=== PATIENT | male | born 1975 | race Two or more races ===

== ENCOUNTER 2021-07-03 18:23 | Inpatient (IN) | payer OTHER ==
[~2021-07-03] VITALS: Ht 170.2 cm; Wt 64.0 kg
--- NOTE | 2021-07-03 18:52 | NUR ---
warp dyeing tender: pt to RAD then to room 21
[2021-07-03] MEDS ORDERED: PLEASE ENTER HEIGHT AND WEIGHT MC SCH (19:00)
[2021-07-03] MEDS ORDERED: SODIUM CHLORIDE FLUSH 10ML SYR IVF ONE (19:00)
[2021-07-03] MEDS ORDERED: PLEASE ENTER ALLERGIES MC SCH (19:00)
[2021-07-03 19:05] LABS: ALANINE AMINOTRANSFERASE 439 U/L (12-78); ALBUMIN 3.2 g/dL (3.4-5.0); ANION GAP 5 mmol/L (5-15); CALCIUM 9.1 mg/dL (8.5-10.1); CHLORIDE 103 mmol/L (98-107); CREATININE 0.45 mg/dL (0.7-1.3)
[2021-07-03 19:06] LABS: BASOPHILS % (AUTO) 0 % (0-1); EOSINOPHILS % (AUTO) 1 % (1-7); LYMPHOCYTES % (AUTO) 10 % (22-44); MEAN CORPUSCULAR HEMOGLOBIN 30.3 pg (27.5-34.5); MEAN CORPUSCULAR HGB CONC 34.4 g/dL (33.2-36.2); MEAN PLATELET VOLUME 9.3 fL (7.4-10.4); MONOCYTES % (AUTO) 9 % (2-9); NEUTROPHILS % (AUTO) 80 % (42-75); PLATELET COUNT 199 x10^3/uL (130-400); RED BLOOD COUNT 4.62 x10^6/uL (4.38-5.82); RED CELL DISTRIBUTION WIDTH 13.5 % (9.4-14.8)
[2021-07-03 19:08] LABS: ALKALINE PHOSPHATASE 563 U/L (45-117); BILIRUBIN,TOTAL 6.8 mg/dL (0.2-1.0); TOTAL PROTEIN 7.6 g/dL (6.4-8.2)
--- NOTE | 2021-07-03 19:52 | NUR ---
PT CAME IN FOR DIARHHEA AND ABD PAIN, PT IS JAUNDICED. DENIES EXCESSIVE ETOH CONSUMPTION. ACCOMPANIED BY WHO TRANSLATES FOR [place] SPEAKING PT. LABS DRAWN, U/S COMPLETE, PT TAKEN TO CT. PT CONNECTED TO MONITORS
[2021-07-03 20:03] LABS: MICROSCOPIC INDICATED
[2021-07-03] MEDS ORDERED: LACTATED RINGERS 1,000 ML IVBOLUS ONE (20:30)
[2021-07-03] MEDS ORDERED: OMNIPAQUE 350 MG/ML, 100ML BOTTLE ONE (20:46)
--- NOTE | 2021-07-03 21:14 | NUR ---
provided pt with blanket, pt napping. vss
[2021-07-03] MEDS ORDERED: ONDANSETRON 2MG/ML, 2ML IVPush PRN (22:30)
[2021-07-03] MEDS ORDERED: BISACODYL 10 MG SUPP PR PRN (22:30)
[2021-07-03 22:36] VITALS: BP 149/83
[2021-07-03] MEDS ORDERED: METF500T17 PO (22:56)
[2021-07-03] MEDS: SODIUM CHLORIDE 0.9% 1,000 ML IV SCH (23:34)
[2021-07-04] MEDS: INSULIN LISPRO 100 UNITS/ML, PEN SQ-INSULIN SCH ×5 (00:07→20:45)
[2021-07-04 02:00] VITALS: BP 128/81
[2021-07-04 06:03] LABS: BASOPHILS % (AUTO) 1 % (0-1); EOSINOPHILS % (AUTO) 1 % (1-7); LYMPHOCYTES % (AUTO) 11 % (22-44); MEAN CORPUSCULAR HEMOGLOBIN 30.2 pg (27.5-34.5); MEAN CORPUSCULAR HGB CONC 33.8 g/dL (33.2-36.2); MEAN PLATELET VOLUME 9.3 fL (7.4-10.4); MONOCYTES % (AUTO) 9 % (2-9); NEUTROPHILS % (AUTO) 79 % (42-75); PLATELET COUNT 174 x10^3/uL (130-400); RED BLOOD COUNT 4.38 x10^6/uL (4.38-5.82); RED CELL DISTRIBUTION WIDTH 13.8 % (9.4-14.8)
[2021-07-04 06:17] LABS: ALBUMIN 2.9 g/dL (3.4-5.0); ANION GAP 6 mmol/L (5-15); CALCIUM 8.4 mg/dL (8.5-10.1); CHLORIDE 105 mmol/L (98-107)
[2021-07-04 06:21] LABS: ALANINE AMINOTRANSFERASE 391 U/L (12-78); ALKALINE PHOSPHATASE 524 U/L (45-117); BILIRUBIN,TOTAL 6.3 mg/dL (0.2-1.0); CREATININE 0.44 mg/dL (0.7-1.3)
[2021-07-04] MEDS ORDERED: POTASSIUM CHLORIDE 20 MEQ TAB.ER.PRT PO ONE (07:00)
[2021-07-04 07:25] VITALS: BP 103/62
[2021-07-04] MEDS: SODIUM CHLORIDE 0.9% 1,000 ML IV SCH (12:20)
[2021-07-04 14:03] VITALS: BP 115/72
[2021-07-04 19:13] VITALS: BP 107/66
[2021-07-05 00:26] VITALS: BP 125/79
[2021-07-05] MEDS: SODIUM CHLORIDE 0.9% 1,000 ML IV SCH ×2 (04:00→11:52)
[2021-07-05 06:09] LABS: ALANINE AMINOTRANSFERASE 361 U/L (12-78); ALBUMIN 2.9 g/dL (3.4-5.0); ANION GAP 6 mmol/L (5-15); CALCIUM 8.6 mg/dL (8.5-10.1); CHLORIDE 106 mmol/L (98-107)
[2021-07-05 06:11] LABS: ALKALINE PHOSPHATASE 542 U/L (45-117); INTERNATIONAL NORMALIZED RATIO 1.11 (0.93-1.1); PROTHROMBIN TIME 11.8 Seconds (9.6-11.5)
[2021-07-05] MEDS: PANCRELIPASE 24,000 CAPSULE.DR PO SCH ×3 (06:41→16:14)
[2021-07-05] MEDS: INSULIN LISPRO 100 UNITS/ML, PEN SQ-INSULIN SCH ×4 (06:41→19:56)
[2021-07-05 07:13] VITALS: BP 128/77
[2021-07-05] MEDS ORDERED: OMNIPAQUE 350 MG/ML, 50 ML BOTTLE ONE (07:19)
[2021-07-05] MEDS ORDERED: FENTANYL PF 100 MCG/2ML ONE (07:29)
[2021-07-05] MEDS ORDERED: hydrALAzine 20 MG/ML, 1ML IV PRN (07:30)
[2021-07-05] MEDS ORDERED: MEPERIDINE/PF 25MG/0.5ML IVPush PRN (07:30)
[2021-07-05] MEDS ORDERED: FENTANYL PF 100 MCG/2ML IV PRN (07:30)
[2021-07-05] MEDS ORDERED: DIPHENHYDRAMINE 50 MG/ML, 1ML IVPush PRN (07:30)
[2021-07-05] MEDS ORDERED: PROMETHAZINE 25 MG/ML, 1ML IVPush PRN (07:30)
[2021-07-05] MEDS ORDERED: HALOPERIDOL 5 MG/ML IV PRN (07:30)
[2021-07-05] MEDS ORDERED: LABETALOL 5MG/ML, 20ML IV PRN (07:30)
[2021-07-05] MEDS ORDERED: CHLORHEXIDINE 15 ML UDC ONE (07:46)
[2021-07-05] MEDS ORDERED: CHLORHEXIDINE 15 ML UDC PO ONE (08:00)
[2021-07-05] MEDS ORDERED: PROPOFOL 10 MG/ML, 20ML ONE (08:17)
[2021-07-05] MEDS ORDERED: ROCURONIUM 10MG/ML,5ML ONE (08:17)
[2021-07-05] MEDS ORDERED: NEOSTIGMINE 1 MG/ML, 10ML ONE (08:17)
[2021-07-05] MEDS ORDERED: GLYCOPYRROLATE 0.2MG/1ML, 5ML ONE (08:17)
[2021-07-05] MEDS ORDERED: ONDANSETRON 2MG/ML, 2ML ONE (08:17)
[2021-07-05] MEDS ORDERED: CEFAZOLIN 1,000 MG ONE (08:17)
[2021-07-05] MEDS ORDERED: SUCCINYLCHOLINE 20 MG/ML, 10ML ONE (08:17)
[2021-07-05 10:00] VITALS: BP 150/77
[2021-07-05] MEDS: morphine SULFATE 10 MG/ML, 1ML IVPush PRN ×4 (10:23→19:49)
[2021-07-05 12:55] VITALS: BP 134/79
[2021-07-05 19:00] VITALS: BP 147/82
[2021-07-06 00:49] VITALS: BP 138/72
[2021-07-06] MEDS: SODIUM CHLORIDE 0.9% 1,000 ML IV SCH ×2 (00:52→14:47)
[2021-07-06 07:10] VITALS: BP 125/79
[2021-07-06] MEDS: PANCRELIPASE 24,000 CAPSULE.DR PO SCH ×3 (07:34→16:09)
[2021-07-06] MEDS: INSULIN LISPRO 100 UNITS/ML, PEN SQ-INSULIN SCH ×4 (07:34→21:53)
[2021-07-06] MEDS: PANTOPRAZOLE 40 MG IV IVPush SCH ×2 (10:06→21:37)
[2021-07-06 10:40] LABS: BASOPHILS % (AUTO) 0 % (0-1); EOSINOPHILS % (AUTO) 0 % (1-7); LYMPHOCYTES % (AUTO) 9 % (22-44); MEAN CORPUSCULAR HEMOGLOBIN 30.3 pg (27.5-34.5); MEAN PLATELET VOLUME 9.4 fL (7.4-10.4); MONOCYTES % (AUTO) 7 % (2-9); NEUTROPHILS % (AUTO) 83 % (42-75); PLATELET COUNT 177 x10^3/uL (130-400); RED BLOOD COUNT 4.39 x10^6/uL (4.38-5.82); RED CELL DISTRIBUTION WIDTH 13.9 % (9.4-14.8)
[2021-07-06 10:48] LABS: ANION GAP 7 mmol/L (5-15); CALCIUM 8.7 mg/dL (8.5-10.1); CHLORIDE 101 mmol/L (98-107)
[2021-07-06 10:51] LABS: ALANINE AMINOTRANSFERASE 357 U/L (12-78); ALKALINE PHOSPHATASE 613 U/L (45-117); BILIRUBIN,TOTAL 2.8 mg/dL (0.2-1.0); CREATININE 0.37 mg/dL (0.7-1.3); TOTAL PROTEIN 7.1 g/dL (6.4-8.2)
[2021-07-06 13:10] VITALS: BP 139/78
[2021-07-06] MEDS: morphine SULFATE 10 MG/ML, 1ML IVPush PRN ×2 (14:44→21:54)
[2021-07-06 18:39] VITALS: BP 137/80
[2021-07-07 00:59] VITALS: BP 148/83
[2021-07-07] MEDS: SODIUM CHLORIDE 0.9% 1,000 ML IV SCH ×2 (04:37→16:49)
[2021-07-07 05:09] LABS: BASOPHILS % (AUTO) 0 % (0-1); EOSINOPHILS % (AUTO) 1 % (1-7); LYMPHOCYTES % (AUTO) 11 % (22-44); MEAN CORPUSCULAR HEMOGLOBIN 30.6 pg (27.5-34.5); MEAN CORPUSCULAR HGB CONC 34.1 g/dL (33.2-36.2); MEAN PLATELET VOLUME 9.3 fL (7.4-10.4); MONOCYTES % (AUTO) 9 % (2-9); NEUTROPHILS % (AUTO) 80 % (42-75); PLATELET COUNT 181 x10^3/uL (130-400); RED BLOOD COUNT 4.42 x10^6/uL (4.38-5.82); RED CELL DISTRIBUTION WIDTH 13.5 % (9.4-14.8)
[2021-07-07 05:20] LABS: ALANINE AMINOTRANSFERASE 341 U/L (12-78); ANION GAP 5 mmol/L (5-15); CALCIUM 8.8 mg/dL (8.5-10.1); CHLORIDE 102 mmol/L (98-107)
[2021-07-07 05:23] LABS: ALKALINE PHOSPHATASE 549 U/L (45-117); BILIRUBIN,TOTAL 2.6 mg/dL (0.2-1.0); CREATININE 0.48 mg/dL (0.7-1.3); TOTAL PROTEIN 7.3 g/dL (6.4-8.2)
[2021-07-07] MEDS: PANCRELIPASE 24,000 CAPSULE.DR PO SCH ×3 (07:34→16:48)
[2021-07-07] MEDS: PANTOPRAZOLE 40 MG IV IVPush SCH (07:35)
[2021-07-07] MEDS: INSULIN LISPRO 100 UNITS/ML, PEN SQ-INSULIN SCH ×4 (07:35→20:53)
[2021-07-07 07:56] VITALS: BP 121/76
[2021-07-07 12:32] VITALS: BP 128/75
[2021-07-07] MEDS ORDERED: GADOTERATE 7.5 MMOL/15 ML VIAL ONE (16:15)
[2021-07-07 18:36] VITALS: BP 122/79
[2021-07-07] MEDS: morphine SULFATE 10 MG/ML, 1ML IVPush PRN ×2 (20:54→23:44)
[2021-07-08] VITALS (9 sets, daily range): BP systolic 97–119; BP diastolic 60–74
[2021-07-08] MEDS: PANTOPRAZOLE 40MG TABLET PO SCH (05:40)
[2021-07-08] MEDS: SODIUM CHLORIDE 0.9% 1,000 ML IV SCH (05:40)
[2021-07-08] MEDS: INSULIN LISPRO 100 UNITS/ML, PEN SQ-INSULIN SCH ×4 (07:00→21:35)
[2021-07-08] MEDS: PANCRELIPASE 24,000 CAPSULE.DR PO SCH ×3 (07:31→17:16)
[2021-07-08 09:44] LABS: ALBUMIN 2.9 g/dL (3.4-5.0); BILIRUBIN, DIRECT 1.5 mg/dL (0.1-0.2)
[2021-07-08 09:45] LABS: BILIRUBIN,INDIRECT 0.8 mg/dL (0.0-2.0); BILIRUBIN,TOTAL 2.3 mg/dL (0.2-1.0); TOTAL PROTEIN 7.1 g/dL (6.4-8.2)
[2021-07-08] MEDS: DOXYCYCLINE 100 MG in DEXTROSE 5% 250 ML IV SCH (14:39)
[2021-07-08] MEDS ORDERED: NALOXONE 1 MG/ML, 2ML ONE (15:31)
[2021-07-08] MEDS ORDERED: FLUMAZENIL 0.1 MG/1 ML, 5ML ONE (15:31)
[2021-07-08] MEDS ORDERED: FENTANYL PF 100 MCG/2ML ONE (15:31)
[2021-07-08] MEDS ORDERED: MIDAZOLAM 1 MG/ML, 5ML ONE (15:31)
[2021-07-08] MEDS ORDERED: LIDOCAINE 1%, 20ML ONE (15:37)
[2021-07-08] MEDS ORDERED: LIDOCAINE 1%, 10ML ONE (16:16)
[2021-07-08] MEDS: morphine SULFATE 10 MG/ML, 1ML IVPush PRN ×3 (17:25→23:02)
[2021-07-09] MEDS: SODIUM CHLORIDE 0.9% 1,000 ML IV SCH ×2 (00:48→14:02)
[2021-07-09 01:34] VITALS: BP 108/73
[2021-07-09] MEDS: DOXYCYCLINE 100 MG in DEXTROSE 5% 250 ML IV SCH ×2 (02:30→14:03)
[2021-07-09 04:00] VITALS: BP 97/62
[2021-07-09] MEDS: PANTOPRAZOLE 40MG TABLET PO SCH (06:43)
[2021-07-09] MEDS: INSULIN LISPRO 100 UNITS/ML, PEN SQ-INSULIN SCH ×4 (07:21→20:50)
[2021-07-09] MEDS: PANCRELIPASE 24,000 CAPSULE.DR PO SCH ×3 (07:25→15:54)
[2021-07-09 07:39] VITALS: BP 109/69
[2021-07-09 14:37] VITALS: BP 130/77
[2021-07-09] MEDS: morphine SULFATE 10 MG/ML, 1ML IVPush PRN ×2 (16:56→22:35)
[2021-07-09 20:50] VITALS: BP 123/77
[2021-07-10] MEDS: DOXYCYCLINE 100 MG in DEXTROSE 5% 250 ML IV SCH ×2 (02:04→14:31)
[2021-07-10 04:06] VITALS: BP 127/80
[2021-07-10] MEDS: SODIUM CHLORIDE 0.9% 1,000 ML IV SCH ×2 (04:12→17:34)
[2021-07-10] MEDS: PANTOPRAZOLE 40MG TABLET PO SCH (04:12)
[2021-07-10] MEDS: morphine SULFATE 10 MG/ML, 1ML IVPush PRN (04:13)
[2021-07-10 06:43] VITALS: BP 119/76
[2021-07-10] MEDS: INSULIN LISPRO 100 UNITS/ML, PEN SQ-INSULIN SCH ×4 (07:42→21:03)
[2021-07-10] MEDS: PANCRELIPASE 24,000 CAPSULE.DR PO SCH ×3 (07:42→16:19)
[2021-07-10] MEDS ORDERED: DEXTROSE 5% IV ONE ×4 (10:30→15:00)
[2021-07-10] MEDS ORDERED: DEXAMETHASONE IVPB ONE (10:30)
[2021-07-10] MEDS ORDERED: OXALIPLATIN IV ONE ×2 (10:30→12:30)
[2021-07-10] MEDS ORDERED: LOPERAMIDE 2 MG CAPSULE PO PRN (10:30)
[2021-07-10] MEDS ORDERED: ONDANSETRON IVPB ONE (10:30)
[2021-07-10] MEDS ORDERED: IRINOTECAN HCL IV ONE ×2 (10:30→15:00)
[2021-07-10] MEDS ORDERED: SODIUM CHLORIDE 0.9% IVPB ONE (10:30)
[2021-07-10] MEDS ORDERED: FOSAPREPITANT 150 MG in SODIUM CHLORIDE 0.9% 145 ML IV ONE (10:30)
[2021-07-10] MEDS ORDERED: FLUOROURACIL IV ONE ×2 (11:00→17:00)
[2021-07-10] MEDS ORDERED: SODIUM CHLORIDE 0.9% IV ONE ×2 (11:00→17:00)
[2021-07-10] MEDS: ENOXAPARIN 40 MG/0.4 ML SQ SCH (11:24)
[2021-07-10 12:38] LABS: ANION GAP 5 mmol/L (5-15); CALCIUM 8.4 mg/dL (8.5-10.1); CHLORIDE 102 mmol/L (98-107); CREATININE 0.59 mg/dL (0.7-1.3)
[2021-07-10 12:39] LABS: ALANINE AMINOTRANSFERASE 142 U/L (12-78); ALBUMIN 2.5 g/dL (3.4-5.0)
[2021-07-10 12:41] LABS: ALKALINE PHOSPHATASE 326 U/L (45-117); BILIRUBIN,TOTAL 1.4 mg/dL (0.2-1.0); TOTAL PROTEIN 6.7 g/dL (6.4-8.2)
[2021-07-10 12:42] VITALS: BP 107/63
[2021-07-10] MEDS ORDERED: ONDANSETRON 2MG/ML, 2ML IV PRN (16:30)
[2021-07-10 18:42] VITALS: BP 103/63
[2021-07-11 01:25] VITALS: BP 116/72
[2021-07-11] MEDS: DOXYCYCLINE 100 MG in DEXTROSE 5% 250 ML IV SCH ×2 (02:37→14:19)
[2021-07-11] MEDS: PANTOPRAZOLE 40MG TABLET PO SCH (05:53)
[2021-07-11 06:36] VITALS: BP 132/72
[2021-07-11] MEDS: PANCRELIPASE 24,000 CAPSULE.DR PO SCH ×3 (06:39→16:17)
[2021-07-11] MEDS ORDERED: LORazepam 2 MG/ML, 1ML IVPush PRN (07:00)
[2021-07-11] MEDS: INSULIN GLARGINE 100 UNITS/ML, PEN SQ-INSULIN SCH ×2 (07:50→21:05)
[2021-07-11] MEDS: INSULIN LISPRO 100 UNITS/ML, PEN SQ-INSULIN SCH ×4 (07:50→21:05)
[2021-07-11] MEDS: SODIUM CHLORIDE 0.9% 1,000 ML IV SCH ×2 (08:58→23:39)
[2021-07-11] MEDS: ENOXAPARIN 40 MG/0.4 ML SQ SCH (11:13)
[2021-07-11 12:26] VITALS: BP 95/57
[2021-07-11] MEDS: morphine SULFATE 10 MG/ML, 1ML IVPush PRN ×2 (14:19→21:43)
[2021-07-11 18:37] VITALS: BP 105/61
[2021-07-12 01:23] VITALS: BP 94/55
[2021-07-12] MEDS: LORazepam 1MG TABLET PO PRN ×2 (01:32→20:57)
[2021-07-12] MEDS: DOXYCYCLINE 100 MG in DEXTROSE 5% 250 ML IV SCH ×2 (01:58→14:37)
[2021-07-12] MEDS: PANTOPRAZOLE 40MG TABLET PO SCH (05:59)
[2021-07-12 06:51] VITALS: BP 105/66
[2021-07-12] MEDS: PANCRELIPASE 24,000 CAPSULE.DR PO SCH ×3 (07:10→16:20)
[2021-07-12] MEDS: INSULIN LISPRO 100 UNITS/ML, PEN SQ-INSULIN SCH ×4 (07:22→20:56)
[2021-07-12] MEDS ORDERED: ONDA4TAB7 PO (09:29)
[2021-07-12] MEDS ORDERED: PROC10TA78 PO (09:29)
[2021-07-12] MEDS ORDERED: SIMETHICONE 80 MG CHEW TAB PO PRN (09:30)
[2021-07-12] MEDS: ENOXAPARIN 40 MG/0.4 ML SQ SCH (10:10)
[2021-07-12 10:40] LABS: BASOPHILS % (AUTO) 0 % (0-1); EOSINOPHILS % (AUTO) 0 % (1-7); LYMPHOCYTES % (AUTO) 8 % (22-44); MEAN CORPUSCULAR HEMOGLOBIN 29.9 pg (27.5-34.5); MEAN CORPUSCULAR HGB CONC 33.8 g/dL (33.2-36.2); MEAN PLATELET VOLUME 9.9 fL (7.4-10.4); MONOCYTES % (AUTO) 5 % (2-9); NEUTROPHILS % (AUTO) 87 % (42-75); PLATELET COUNT 214 x10^3/uL (130-400); RED BLOOD COUNT 4.37 x10^6/uL (4.38-5.82); RED CELL DISTRIBUTION WIDTH 13.1 % (9.4-14.8)
[2021-07-12 10:43] LABS: ALANINE AMINOTRANSFERASE 106 U/L (12-78); ALBUMIN 2.6 g/dL (3.4-5.0); ANION GAP 7 mmol/L (5-15); CALCIUM 8.4 mg/dL (8.5-10.1); CHLORIDE 101 mmol/L (98-107); CREATININE 0.49 mg/dL (0.7-1.3)
[2021-07-12 10:45] LABS: ALKALINE PHOSPHATASE 284 U/L (45-117); BILIRUBIN,TOTAL 1.5 mg/dL (0.2-1.0); TOTAL PROTEIN 6.9 g/dL (6.4-8.2)
[2021-07-12 12:31] VITALS: BP 104/64
[2021-07-12] MEDS: morphine SULFATE 10 MG/ML, 1ML IVPush PRN (12:34)
[2021-07-12] MEDS: SODIUM CHLORIDE 0.9% 1,000 ML IV SCH (13:31)
[2021-07-12 20:52] VITALS: BP 111/71
[2021-07-12] MEDS: INSULIN GLARGINE 100 UNITS/ML, PEN SQ-INSULIN SCH (20:57)
[2021-07-13 00:58] VITALS: BP 103/66
[2021-07-13] MEDS: DOXYCYCLINE 100 MG in DEXTROSE 5% 250 ML IV SCH ×2 (02:08→14:17)
[2021-07-13 03:38] LABS: BASOPHILS % (AUTO) 0 % (0-1); EOSINOPHILS % (AUTO) 1 % (1-7); LYMPHOCYTES % (AUTO) 13 % (22-44); MEAN CORPUSCULAR HEMOGLOBIN 30.7 pg (27.5-34.5); MEAN CORPUSCULAR HGB CONC 34.6 g/dL (33.2-36.2); MEAN PLATELET VOLUME 9.8 fL (7.4-10.4); MONOCYTES % (AUTO) 5 % (2-9); NEUTROPHILS % (AUTO) 81 % (42-75); PLATELET COUNT 172 x10^3/uL (130-400)
[2021-07-13 03:40] LABS: ALANINE AMINOTRANSFERASE 86 U/L (12-78); ALBUMIN 2.4 g/dL (3.4-5.0); ANION GAP 5 mmol/L (5-15); CALCIUM 8.5 mg/dL (8.5-10.1); CHLORIDE 102 mmol/L (98-107); CREATININE 0.35 mg/dL (0.7-1.3)
[2021-07-13 03:42] LABS: ALKALINE PHOSPHATASE 242 U/L (45-117); BILIRUBIN,TOTAL 1.2 mg/dL (0.2-1.0); TOTAL PROTEIN 6.6 g/dL (6.4-8.2)
[2021-07-13] MEDS: SODIUM CHLORIDE 0.9% 1,000 ML IV SCH (06:07)
[2021-07-13] MEDS: PANTOPRAZOLE 40MG TABLET PO SCH (06:20)
[2021-07-13] MEDS: PANCRELIPASE 24,000 CAPSULE.DR PO SCH ×3 (06:20→16:25)
[2021-07-13 06:47] VITALS: BP 100/62
[2021-07-13] MEDS: INSULIN LISPRO 100 UNITS/ML, PEN SQ-INSULIN SCH ×3 (07:43→16:25)
[2021-07-13] MEDS ORDERED: LIPA1CAP61 PO (08:39)
[2021-07-13] MEDS: morphine SULFATE 10 MG/ML, 1ML IVPush PRN (09:57)
[2021-07-13] MEDS: ENOXAPARIN 40 MG/0.4 ML SQ SCH (09:57)
[2021-07-13 12:48] VITALS: BP 99/62
== END 2021-07-13 18:12 | disposition home or self-care (01) | DRG 436 ==
LOC: ED 21:13 → EDIP 21:49 → 4NE 22:33 → 4NW 07-05 16:45
PROVIDERS: ADMIT Emergency Medicine; ATTEND Family Medicine
PROC: 0F798DZ Dilation of Common Bile Duct with Intraluminal Device, Via Natural or Artificial Opening Endoscopic (ICD-10-PCS; principal; 2021-07-05 07:45)
PROC: BF40ZZZ Ultrasonography of Bile Ducts (ICD-10-PCS; 2021-07-05 07:45)
PROC: 02HV33Z Insertion of Infusion Device into Superior Vena Cava, Percutaneous Approach (ICD-10-PCS; 2021-07-08)
PROC: B518ZZA Fluoroscopy of Superior Vena Cava, Guidance (ICD-10-PCS; 2021-07-08)
PROC: B548ZZA Ultrasonography of Superior Vena Cava, Guidance (ICD-10-PCS; 2021-07-08)
PROC: 0FB03ZX Excision of Liver, Percutaneous Approach, Diagnostic (ICD-10-PCS; 2021-07-08)
DX: C25.9 Malignant neoplasm of pancreas, unspecified (principal); E87.1 Hypo-osmolality and hyponatremia; K80.21 Calculus of gallbladder without cholecystitis with obstruction; C78.7 Secondary malignant neoplasm of liver and intrahepatic bile duct; M17.12 Unilateral primary osteoarthritis, left knee; E11.9 Type 2 diabetes mellitus without complications; R74.01 Elevation of levels of liver transaminase levels; R19.7 Diarrhea, unspecified; E87.6 Hypokalemia; K86.89 Other specified diseases of pancreas; Z20.822 Contact with and (suspected) exposure to COVID-19; E73.9 Lactose intolerance, unspecified; K29.70 Gastritis, unspecified, without bleeding; K29.80 Duodenitis without bleeding; Z83.3 Family history of diabetes mellitus; Z83.49 Family history of other endocrine, nutritional and metabolic diseases
CPT/HCPCS: 36415; 74328; 77001; 96360; 99285; J3490; 36561; 47000; 71260; 74177; 74183; 76700; 76937; 76942; 80053; 80076; 81001; 82962; 83036; 83690; 83735; 85025; 85610; 86301; 87635; 88172; 88173; 88177; 88307; 99156; 99157; G0378; J0690; J1100; J1453; J1650; J2250; J2405; J2704; J2710; J3010; J7060; J9206; Q9967; A9575; C1769; C1788; C1894; C2625; C9113; J0330; J1642; J1815; J2270; J2310; J7030; J7120; J9190; J9263

== ENCOUNTER 2021-08-01 06:24 | Emergency (ER) | payer OTHER ==
[~2021-08-01] VITALS: Ht 170.2 cm; Wt 64.3 kg
[~2021-08-01 06:24] MED LIST: LIPA1CAP61 PO; METF500T17 PO; ONDA4TAB7 PO; PROC10TA78 PO
--- NOTE | 2021-08-01 06:51 | NUR ---
CARE TRANSFERED. REPORT GIVEN TO AMERICO GARCIA
[2021-08-01] MEDS ORDERED: HYDROmorphone 2 MG/ML, 1ML ONE (06:55)
[2021-08-01] MEDS ORDERED: HYDROmorphone 1 MG/ML, 1ML INJ IV ONE (07:00)
[2021-08-01] MEDS ORDERED: SODIUM CHLORIDE FLUSH 10ML SYR IVF ONE (07:00)
--- NOTE | 2021-08-01 07:12 | NUR ---
PT MEDICATED PER JAN. LABS DRAWN
[2021-08-01 07:25] LABS: BASOPHILS % (AUTO) 0 % (0-1); EOSINOPHILS % (AUTO) 0 % (1-7); LYMPHOCYTES % (AUTO) 8 % (22-44); MEAN CORPUSCULAR HGB CONC 34.7 g/dL (33.2-36.2); MONOCYTES % (AUTO) 9 % (2-9); NEUTROPHILS % (AUTO) 82 % (42-75); PLATELET COUNT 127 x10^3/uL (130-400); RED BLOOD COUNT 4.18 x10^6/uL (4.38-5.82); RED CELL DISTRIBUTION WIDTH 13.3 % (9.4-14.8)
[2021-08-01 07:39] LABS: ALBUMIN 2.6 g/dL (3.4-5.0); ANION GAP 6 mmol/L (5-15); CALCIUM 9.2 mg/dL (8.5-10.1); CHLORIDE 102 mmol/L (98-107)
[2021-08-01 07:42] LABS: ALANINE AMINOTRANSFERASE 43 U/L (12-78); ALKALINE PHOSPHATASE 153 U/L (45-117); BILIRUBIN,TOTAL 0.9 mg/dL (0.2-1.0); CREATININE 0.43 mg/dL (0.7-1.3); TOTAL PROTEIN 7.2 g/dL (6.4-8.2)
[2021-08-01 07:49] VITALS: BP 106/60
[2021-08-01] MEDS ORDERED: OMNIPAQUE 350 MG/ML, 100ML BOTTLE ONE (08:51)
== END 2021-08-01 09:55 | disposition home or self-care (01) ==
LOC: ED 06:54
DX: C78.89 Secondary malignant neoplasm of other digestive organs (principal); E11.9 Type 2 diabetes mellitus without complications
CPT/HCPCS: 36415; 74177; 80053; 83690; 85025; 96374; 99285; J1170; Q9967